=== PATIENT | female | born 1970 | race Caucasian/White ===

== ENCOUNTER → 2023-09-23 10:19 | Outpatient (REF) | payer OTHER, SELFPAY | LOC: HWWDC 10:19 | PROVIDERS: ATTENDING PHYSICIAN Physician Assistant Surgical; FAMILY PHYSICIAN Physician Assistant Medical | DX: Z12.31 Encounter for screening mammogram for malignant neoplasm of breast (principal) | CPT/HCPCS: 77063; 77067 ==

== ENCOUNTER 2024-12-29 19:20 | Emergency (ER) | payer OTHER, SELFPAY ==
[2024-12-29 19:24] VITALS: BP 152/88
--- NOTE | 2024-12-29 21:09 | ED.GENMED ---
History of Present Illness
General
Chief Complaint: Abdominal Pain
Source: patient
Time Seen by Provider: 12/29/24 20:42
History of Present Illness
History of Present Illness:
This patient is a 54-year-old female who states that she has had right lower quadrant pain for approximately a week. She says the pain is constant and sometimes is also noted in her right back. Patient has a history of a kidney transplant which is
located in the right lower quadrant. She had a workup this week by her kidney doctors including ultrasound, labs, and urine, all of which were fine. She was reassured by her doctors that her kidney is not the source of her pain and that there were
not concerns related to the transplanted kidney. She then called her doctor today and was referred to the emergency department for further workup. Patient thought she might be constipated causing this pain so she took MiraLAX but states that her
bowel movements have been normal. She denies associated fever, chills, nausea, vomiting, anorexia, chest pain, dyspnea, urinary symptoms, or other complaints. There are no exacerbating relieving factors. Pain is described as 'dull'.
Past History
Past History
ED Past Medical History: Renal failure and Other (anemia, erythema nodosum, hyponatremia, Anit-GBM)
ED Past Surgical History: Urological (Kidney transplant) and Other (R Ant chest wall TLC)
Social History
Tobacco: Non-smoker
Alcohol: None
Drug: None
Personal:
Living: with family
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
Family History
Family History: Other (mother RA, father psoriasis, GM w/ scleroderma)
Phy Exam
Physical Exam
Physical Exam:
GENERAL: Alert , in no apparent distress, nontoxic, well-appearing
EYE: pupils equal and reactive
NECK: Supple, no significant adenopathy.
ENT: o/p clr, mmm.
CARDIAC: Regular rate and rhythm .
LUNGS: Clear breath sounds bilaterally, no acute respiratory distress, no wheezes/rales/rhonchi
ABDOMEN: Soft, nonspecific mild tenderness along entire right side and less so left mid quadrant, no r/g, no cvat
NEUROLOGICAL: Alert and oriented, no focal neuro deficits
SKIN: Warm and dry, skin intact.
MUSCULOSKELETAL: No edema, well perfused.
PSYCH: Normal and appropriate interaction.
Course
Orders/Labs/Results
Orders:
Orders
12/29/24 21:08
CT Abd/pel Without Iv Or Oral Urgent
Comment:
Reason For Exam: HX KIDNEY TX, NOW RLQ PAIN (KIDNEY W/U NL)
Vital Signs
Initial and Last Documented VS:
Initial Vital Signs
Temp Pulse Resp BP Pulse Ox
97.9 F 60 18 152/88 100
12/29/24 19:24 12/29/24 19:24 12/29/24 19:24 12/29/24 19:24 12/29/24 19:24
Last Documented Vital Signs
Temp Pulse Resp BP Pulse Ox
97.9 F 60 18 152/88 100
12/29/24 19:24 12/29/24 19:24 12/29/24 19:24 12/29/24 19:24 12/29/24 21:11
*Pulse Oximetry
SaO2: 100
Oxygen Mode of Delivery: Room air
Update Note
Update Note:
Patient presents to the Emergency Department with _right lower quadrant pain
Number and Complexity of Problems Addressed at the Encounter
� Chronic conditions affecting care:
� Acute Exacerbation and/or Progression of Chronic Illness:
� Differential Diagnosis includes: But not limited to musculoskeletal pain, appendicitis, cholecystitis, ovarian cyst, etc. etc.
Amount and/or Complexity of Data to be Reviewed and Analyzed
� I performed an independent evaluation of and my interpretation is:
EKG:
CT: Moderate amount of fecal material throughout the colon suggesting CONSTIPATION.
2. Right lower quadrant renal transplant in place.
3. SEVERE BILATERAL ATROPHY of the [place].
4. Moderate to severe pancreatic lipomatosis.
5. 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
Xrays:
Laboratory Studies: Patient had a CBC CMP and UA performed today, I reviewed results with her which are all unremarkable
Other:
� Review of other/old records reveals:
� Clinical information was obtained by an independent historian:
� Prescriptions/Medications Considered but not given:
� Further testing considered but not performed:
Risk of Complications and/or Morbidity or Mortality of Patient Management
� Social determinants of health affecting care:
� Discussion with other providers (PCP, Hospitalists, Consultants, etc):
� Escalation of care including admission/observation vs risk of discharge considered: CT scan ordered. Patient is obviously not a candidate for IV contrast. She declines p.o. contrast
9:41 PM CAT scan consistent with constipation, no other acute worrisome pathology. Nonspecific incidental findings discussed with patient regarding importance of follow-up, given copy of report. Discussed with patient reasons to return to the
emergency department.
ED Attending Note
-
Portions of this chart may have been created with voice recognition software.� Occasional wrong word or��sound alike� substitutions may have occurred due to the inherent limitations of voice recognition software.
Discharge Plan
Departure
Patient Disposition: Home (Routine Discharge)
Date of Disposition: 12/29/24
Time of Disposition: 21:40
Patient with high blood pressure during this ER visit?: Yes
Condition: Good
Discharge Problem:
Constipation
Instructions: Constipation, Adult (DC), BLOOD PRESSURE
Prescriptions:
No Action
prednisone 1 MG tablet
5 mg PO DAILY
docusate sodium [Colace] 100 mg Capsule
200 mg PO HS
estradiol 0.01 % (0.1 mg/gram) Cream
1 g VAGINAL DAILY PRN (Reason: dryness)
tacrolimus 1 mg Capsule
3 mg PO .AM
tacrolimus 1 mg Capsule
2 mg PO HS
mycophenolate sodium 180 mg Tablet,Delayed Release (Dr/Ec)
360 mg PO BID
folic acid 0.8 mg Capsule
0.4 mg PO DAILY
biotin 2,500 mcg Capsule
5,000 mcg PO DAILY
fluticasone propionate 1 SPRAY spray,suspension
1 spray intranasal DAILY PRN (Reason: allergies)
Referrals:
UNKNOWN - PT DOES,NOT KNOW [Family Provider]
Activity Restrictions/Additional Instructions:
IF YOU DEVELOP INCREASING NEW OR PERSISTENT PAIN, FEVER, VOMITING, DIFFICULTY URINATING, PAIN WITH URINATION, GET WORSE, DO NOT GET BETTER, OR OTHER WORRISOME SIGNS, PLEASE RETURN TO THE ER IMMEDIATELY!
Interventions
Interventions:
*Risk Screen - Suicide Last Done: 12/29/24 19:24
*Neglect/Abuse Screening Last Done: 12/29/24 19:24
Discharge Date and Time
Print Language: HUNGARIAN
== END 2024-12-29 21:59 | disposition home or self-care (01) ==
LOC: EMR 19:20
PROVIDERS: EMERGENCY PHYSICIAN Emergency Medicine
DX: K59.00 Constipation, unspecified (principal); R03.0 Elevated blood-pressure reading, without diagnosis of hypertension; Z94.0 Kidney transplant status
CPT/HCPCS: 99284; 74176